=== PATIENT | female | born 2000 | race Caucasian/White ===

== ENCOUNTER 2021-07-14 14:27 | Outpatient (CLI) | payer OTHER | END 2021-07-14 14:28 | disposition home or self-care (01) | LOC: CSHMAMMO 14:27 | PROVIDERS: ATTEND Obstetrics & Gynecology | DX: Z13.820 Encounter for screening for osteoporosis (principal); Z87.42 Personal history of other diseases of the female genital tract | CPT/HCPCS: 77080 ==

== ENCOUNTER 2021-08-28 13:53 | Outpatient (CLI) | payer OTHER | END 2021-08-28 13:54 | disposition home or self-care (01) | LOC: CSHLAB 13:53 | PROVIDERS: ATTEND Obstetrics & Gynecology | DX: Z01.812 Encounter for preprocedural laboratory examination (principal); Z20.822 Contact with and (suspected) exposure to COVID-19; N80.8 Other endometriosis | CPT/HCPCS: 84703; 85027; 86850; 86900; 86901; 87811 ==

== ENCOUNTER 2021-09-02 10:34 | Day surgery (SDC) | payer OTHER ==
[2021-08-28 15:46] LABS: Hemoglobin 12.8 g/dL (12.0-15.5); Mean Corpuscular HGB CONC 33.7 g/dL (32.0-36.0); Mean Platelet Volume 10.9 fl (7.4-10.4); Platelet Count 381 10x3/uL (150-450); RBC Distribution Width 12.7 % (11.5-14.5); Red Blood Cell (RBC) Count 4.27 10x6/uL (3.90-5.03); White Blood Cell (WBC) Count 7.2 10x3/uL (3.5-10.5)
[2021-08-28 16:13] LABS: BHCG - Serum Negative (NEGATIVE); Pregs Control Background? CLEAR/WHITE (CLR/WHITE); Pregs Control Bar Appear? YES (CONTROL BAR)
[2021-09-01 12:19] VITALS: BMI 22.0
[~2021-09-02 10:34] MED LIST: Bupivacaine PF 0.5% 30 ML VIAL ONE; EPINEPHrine 1 MG/ML AMP ONE
[2021-09-02] MEDS ORDERED: Famotidine/PF 20 mg/2ml Vial ONE (10:52)
[2021-09-02] MEDS ORDERED: Gabapentin 300 MG CAP ONE (10:52)
[2021-09-02] MEDS ORDERED: CeleCOXIB 100 MG CAP ONE (10:54)
[2021-09-02] MEDS ORDERED: CEFAZOLIN 2 GM VIAL ONE (10:58)
[2021-09-02] MEDS ORDERED: PROPOFOL 20 ML ONE (11:02)
[2021-09-02] MEDS ORDERED: Fentanyl 100 MCG/2 ML VIAL ONE (11:02)
[2021-09-02] MEDS ORDERED: Ondansetron PF 4 MG/2 ML Vial ONE (11:03)
[2021-09-02] MEDS ORDERED: Lidocaine 1% PF 5 ML VIAL ONE (11:03)
[2021-09-02] MEDS ORDERED: Dexamethasone 4 mg/ml Vial ONE (11:03)
[2021-09-02] MEDS ORDERED: Rocuronium Bromide 10 MG/ML (10ML VIAL) ONE (11:03)
[2021-09-02] MEDS ORDERED: Lidocaine 1% MPF 2 ML VIAL ONE (11:04)
[2021-09-02] MEDS ORDERED: Midazolam HCl 2 mg/2 ml Vial ONE (11:34)
[2021-09-02] MEDS ORDERED: Glycopyrrolate 0.2 MG/ML 5 ML SYRINGE ONE (12:05)
[2021-09-02] MEDS ORDERED: Ketorolac Tromethamine 30 MG/ML VIAL ONE (12:06)
== END 2021-09-02 14:30 | disposition home or self-care (01) ==
LOC: CSHSDC 10:34
PROVIDERS: ATTEND Obstetrics & Gynecology
PROC: 0U544ZZ Destruction of Uterine Supporting Structure, Percutaneous Endoscopic Approach (ICD-10-PCS; principal; 2021-09-02)
PROC: 8E0W4CZ Robotic Assisted Procedure of Trunk Region, Percutaneous Endoscopic Approach (ICD-10-PCS; principal; 2021-09-02)
PROC: 0U5F4ZZ Destruction of Cul-de-sac, Percutaneous Endoscopic Approach (ICD-10-PCS; principal; 2021-09-02)
DX: N80.3 Endometriosis of pelvic peritoneum (principal); Z79.899 Other long term (current) drug therapy; Z20.822 Contact with and (suspected) exposure to COVID-19
CPT/HCPCS: 36415; 84703; 85027; 86850; 86900; 86901; 87811; 88305; J0171; J0690; J1100; J1885; J2250; J2405; J2704; J3010; S0020; S0028

== ENCOUNTER 2021-10-21 13:13 | Outpatient (CLI) | payer OTHER ==
[2021-10-21] MEDS ORDERED: Magnevist 469MG/ML 20 ML VIAL ONE (13:41)
== END 2021-10-21 13:14 | disposition home or self-care (01) ==
LOC: CSHMRI 13:13
PROVIDERS: ATTEND Obstetrics & Gynecology
DX: Q51.10 Doubling of uterus with doubling of cervix and vagina without obstruction (principal); Q51.4 Unicornate uterus
CPT/HCPCS: 72197; A9579